=== PATIENT | male | born 2000 ===

== ENCOUNTER 2020-12-27 10:31 | Outpatient (REF) | payer OTHER, SELFPAY ==
[2020-12-27 14:09] LABS: MANUAL DIFF FLAG NO
[2020-12-27 14:14] LABS: Basophils Absolute Auto 0.1 X10*3/uL (0.0-0.2); Basophils Percent Auto 0.5 % (0-2); Eosinophils Absolute Auto 0.3 X10*3/uL (0.0-0.4); Eosinophils Percent Auto 2.5 % (0-4); Hematocrit 50.4 % (42-52); Hemoglobin 16.7 g/dl (14.0-18.0); Imm Gran Abs Auto 0.03 X10*3/uL (0.00-0.03); Imm Gran Pct Auto 0.3 % (0.0-0.4); Lymphocytes Absolute Auto 4.1 X10*3/uL (1.2-4.9); Lymphocytes Percent Auto 41.7 % (20-40); Mean Corpuscular HGB Conc 33.1 g/dl (31.0-36.0); Mean Corpuscular Hemoglobin 30.7 pg (27.0-33.0); Mean Corpuscular Volume 92.6 fL (80-98); Mean Platelet Volume 10.7 fL (9.4-12.4); Monocytes Absolute Auto 0.8 X10*3/uL (0.1-1.2); Monocytes Percent Auto 8.4 % (2-11); Neutrophils Absolute Auto 4.6 X10*3/uL (2.0-8.3); Neutrophils Percent Auto 46.6 % (45-73); Platelet Count 238 X10*3/uL (160-400); Red Blood Count 5.44 X10*6/uL (4.60-5.80); Red Cell Distribution Width 12.3 % (11.0-16.0); White Blood Count 9.8 X10*3/uL (4.8-10.8)
[2020-12-27 14:33] LABS: Alanine Aminotransferase 21 U/L (0-40); Anion Gap 15 (12-20); Aspartate Amino Transferase 24 U/L (5-37); Blood Urea Nitrogen 25 mg/dL (9-16); Calcium 10.6 mg/dL (8.4-10.2); Carbon Dioxide 29 mmol/L (22-29); Chloride 101 mmol/L (96-108); Cholesterol 172 mg/dL; Estimated Glomerular Filt Rate > 60; Glucose Fasting 80 mg/dL (60-99); HDL Cholesterol 43 mg/dL; LDL Cholesterol Calculated 119 mg/dl; Potassium 4.5 mmol/L (3.3-5.1); Sodium 140 mmol/L (135-145); Triglycerides 54 mg/dL
[2020-12-27 14:54] LABS: TSH reflex Free T4 2.33 uIU/mL (0.32-4.0)
== END 2020-12-27 10:32 | disposition home or self-care (01) ==
LOC: HO.HMGCLDS 10:31
PROVIDERS: PCP Internal Medicine; Visit Provider Internal Medicine
DX: Z00.01 Encounter for general adult medical examination with abnormal findings (principal); F90.9 Attention-deficit hyperactivity disorder, unspecified type; F32.9 Major depressive disorder, single episode, unspecified; I10 Essential (primary) hypertension
CPT/HCPCS: 36415; 80048; 80061; 82306; 84443; 84450; 84460; 85025

== ENCOUNTER 2022-01-27 08:45 | Outpatient (REF) | payer OTHER, SELFPAY ==
[2022-01-27 12:24] LABS: Alanine Aminotransferase 28 U/L (0-40); Aspartate Amino Transferase 20 U/L (5-37); Cholesterol 192 mg/dL; Glucose Fasting 86 mg/dL (60-99); HDL Cholesterol 45 mg/dL; LDL Cholesterol Calculated 133 mg/dl; Triglycerides 71 mg/dL
== END 2022-01-27 08:46 | disposition home or self-care (01) ==
LOC: HO.WFDLDS 08:45
PROVIDERS: Visit Provider Internal Medicine
DX: Z00.00 Encounter for general adult medical examination without abnormal findings (principal); F32.9 Major depressive disorder, single episode, unspecified; F43.10 Post-traumatic stress disorder, unspecified; F90.9 Attention-deficit hyperactivity disorder, unspecified type; L70.0 Acne vulgaris
CPT/HCPCS: 36415; 80061; 82947; 84450; 84460

== ENCOUNTER 2023-01-26 12:14 | Outpatient (AMB) | payer OTHER, SELFPAY ==
[2023-01-26 12:24] VITALS: BP 118/70; PULSE 101; O2SAT 99; BMI 25.1
--- NOTE | 2023-01-26 12:24 | MHC.PC.OV ---
Vital Signs 01/26/23 12:24 Height 5 ft 5 in Weight 151 lb BMI 25.1 BP 118/70 Blood Pressure Location Rt brachial Position Sitting Pulse 101 H Pulse Source Pulse Oximeter Pulse Oximetry (%) 99 Oxygen Delivery Method Room Air Intake Visit Reasons: PE Intake Note: pt is here for physical exam Accompanied by: Self / Same As Patient Allergies No Known Allergies Allergy (Verified 01/26/23 13:28) Medication List - Last Reconciled 01/26/23 by Ml Tate MD benzoyl peroxide 10% (Acne Medication) 1 appl topical QAM clindamycin phosphate 1% 1 appl topical DAILY escitalopram oxalate 20 mg PO DAILY methylphenidate HCl ER (Concerta) 54 mg PO DAILY tretinoin 0.025% appl topical BEDTIME Tobacco use date assessed: 01/26/23 Dental Screening Dental Screen Date: 01/26/23 Did you have a dental visit in the last 12 months?: Yes Did you have a dental problem in the last 6 months where you did not have access to dental care?: No Was dental information given to patient?: Patient has dentist HPI PE HPI Details 22-year-old male here today for his physical exam. He is currently being followed for his ADHD and PTSD by Ole joseph, stable and controlled on Concerta and escitalopram. He is also currently being seen by Dr. Alvarez for his acne, controlled with clindamycin phosphate gel , benzoyl peroxide and tretinoin. He has been feeling well, with no complaints at present time. [facility] Medical History Adult general medical exam Acne vulgaris Allergic rhinitis PTSD (post-traumatic stress disorder) Depression ADHD Surgical History S/P tonsillectomy and adenoidectomy Family History Sister Mental health disorder Maternal Aunt Mental health disorder Social History Housing: Apartment Patient Tobacco Use Status: Never used Tobacco e-Cigarette/Vaping Use: Never Used Second Hand Smoke Exposure: No service: No Current occupational status: employed Cognitive needs: No Hearing needs: No Vision needs: No Questionnaire PHQ-9 Over the last 2 weeks, how often have you been bothered by any of the following problems? 1. Little interest or pleasure in doing things: several days 2. Feeling down, depressed, or hopeless: not at all 3. Trouble falling or staying asleep, or sleeping too much: several days 4. Feeling tired or having little energy: not at all 5. Poor appetite or overeating: not at all 6. Feeling bad about yourself - or that you are a failure or have let yourself or your family down: several days 7. Trouble concentrating on things, such as reading the newspaper or watching television: several days 8. Moving or speaking so slowly that other people could have noticed. Or the opposite - being so fidgety or restless that you have been moving around a lot more than usual: not at all 9. Thoughts that you would be better off or of hurting yourself in some way: not at all Total score: 4 Depression Screening Interpretation: Negative (Currently followed by Idalia Norman for his PTSD and ADD) 69525 - PHQ-9 Billing: Yes Source: Developed by Drs. Ron Elam, Fatuma Walton, Al Banegas and colleagues, with an educational palmer from [employer]. Thrive Questionnaire Date Thrive assessed: 01/26/23 I am a: Patient What is your living situation today?: I have a steady place to live Within the past 12 months, did the food you bought not last and you didn't have the money to get more?: Never true Within the past 12 months, did you worry whether your food would run out before you got money to buy more?: Never true Do you have trouble paying for medicines?: No Do you have trouble getting transportation to medical appointments?: No Do you have trouble paying your heating and electricity bill?: No Do you have trouble taking care of your child, family member or friend?: No Do you have trouble with day-to-day activities such as bathing, preparing meals, shopping, managing finances, etc.?: No Are you currently unemployed and looking for a job?: No Are you interested in more education?: No Please select the resources that you would like help with: None Currently or been in a relationship where the following occur: no concerns reported DEEPALI-7 AMB Questionnaire DEEPALI-7 Date DEEPALI - 7 assessed: 01/26/23 Feeling nervous, anxious, or on edge: 1 = Several days Not being able to stop or control worryin = Not at all Worrying too much about different things: 1 = Several days Trouble relaxin = Not at all Being so restless that it is hard to sit still: 0 = Not at all Becoming easily annoyed or irritable: 0 = Not at all Feeling afraid as if something awful might happen: 0 = Not at all Total DEEPALI-7 score (0-4 normal; 5-9 mild; 10-14 moderate; 15-21 severe): 2 Source: Developed by Drs. Ron Elam, Fatuma Walton, Al Banegas and colleagues, with an educational palmer from [employer]. DEEPALI-7 Assessment Billing DEEPALI-7 Assessment Tool: DEEPALI-7 Assessment [id number] Review of Systems Const Denies body aches, Denies fatigue, Denies fever(s), Denies headache(s) and Denies weakness Eyes Denies change in vision, Denies eye discharge and Denies itchy eyes ENT Denies dizziness, Denies headache(s), Denies nasal congestion, Denies nasal discharge and Denies sore throat Card Denies chest pain, Denies lightheadedness and Denies dyspnea Resp Denies chest congestion, Denies cough, Denies dyspnea and Denies wheezing GI Denies abdominal pain, Denies change in bowel habits and Denies heartburn Denies dysuria, Denies urinary frequency and Denies urinary urgency Musc Reports no additional complaints Skin/Breast Denies lesions and Denies rash Neuro Denies dizziness, Denies headache(s) and Denies weakness Psych Reports as per HPI Endo Denies fatigue, Denies polydipsia and Denies polyuria Parminder/Lymph Denies easy bruising Aller/Immun Denies itchy eyes, Denies seasonal rhinorrhea and Denies wheezing Physical exam (Primary Care) Vital Signs: Last Vital Signs Pulse 101 H 01/26/23 12:24 BP 118/70 01/26/23 12:24 Pulse Ox 99 01/26/23 12:24 Oxygen Delivery Method Room Air 01/26/23 12:24 BMI result Body Mass Index 25.1 Tobacco/Smoking Status: Tobacco use Status Tobacco use date assessed 01/26/23 01/26/23 12:27 Patient Tobacco Use Status Never used Tobacco 01/26/23 12:27 e-Cigarette/Vaping Use Never Used 01/26/23 12:27 PHQ-9: PHQ-9 Score PHQ-9: Total score 4 01/26/23 13:35 Depression Screening Interpretation: Negative (Currently followed by Idalia Norman for his PTSD and ADD) Thrive Assessment: Date of Thrive Assessment Date Thrive assessed 01/26/23 01/26/23 12:27 Currently or been in a relationship where the following occur: no concerns reported Const General: cooperative and no acute distress Orientation/consciousness: patient oriented x3 Limitations: no limitations HENMT Ears: hearing grossly normal bilaterally, external ears normal, TM's normal bilaterally and EAC's normal General nose exam: Normal external nose present and No nasal discharge present Mouth: Normal oral and palatal mucosa present, oropharynx normal and moist mucous membranes Throat: Yes posterior oropharynx normal Eyes General: appearance normal, both eyes and all related structures Conjunctivae: conjunctivae normal Pupils: Equal, round and reactive pupils present EOM: EOMs intact bilaterally Neck Neck: Yes full ROM, Yes no lymphadenopathy and Yes supple Thyroid: Thyroid normal Chest Chest palpation & inspection: normal inspection of the chest Resp Effort & Inspection: normal respiratory effort and able to speak in complete sentences Auscultation: clear to auscultation bilaterally Cardio Rate: regular rate Rhythm: regular rhythm Heart sounds: S1 normal heart sound present and S2 normal heart sound present GI Inspection: Yes normal to inspection Palpation (GI): Soft to palpation, nontender and no masses Auscultation: normal bowel sounds Male General Exam: Yes normal external exam Penis: normal penis Back/Spine/Pelvis Cervical Spine: cervical ROM normal Thoracic/Lumbar Spine: thoracic and lumbar spine normal to inspection Skin General skin exam: no rashes or lesions noted Neuro General: patient oriented x3, gait normal, moves all extremities, Normal light touch and pain sensation and no focal motor deficits Cranial nerves: Yes Equal, round and reactive pupils present Cognition (Neuro): normal cognition Gait exam (Neuro): Normal gait present Motor exam (neuro): 5/5 motor strength present throughout Extrem General: Yes full ROM, Yes no joint enlargement, Yes no pedal edema, Yes no calf tenderness and Yes normal gait Psych Appearance: grossly normal Mental Status: mental status grossly normal Speech and movement: Normal speech and movement present Affect: Blunted affect present Attitude: cooperative Assessment and Plan Assessment & Plan (1) Adult general medical exam: Code(s): Z00.00 - Encounter for general adult medical examination without abnormal findings Plan: Will check appropriate labs. Recommended dental visit every 6 months and regular eye exams, at least every 2 years. Take adequate calcium in diet and vitamin-D 3 at 2000 IU per cap once a day, in addition to weight-bearing exercises to help maintain good muscle tone and weight control. Instructed to do self-testicular exam to check for any mass. To get his COVID booster and flu shot (2) Acne vulgaris: Code(s): L70.0 - Acne vulgaris Plan: With benzyl peroxide, tretinoin and clindamycin gel, followed by Dr. Irwin (3) PTSD (post-traumatic stress disorder): Code(s): F43.10 - Post-traumatic stress disorder, unspecified Plan: Doing well on escitalopram (4) Depression: Code(s): F32.9 - Major depressive disorder, single episode, unspecified Qualifiers: Active/Remission status: currently active Depression Type: major depressive disorder Major depression episode severity: mild Major depression recurrence: recurrent Qualified Code(s): F33.0 - Major depressive disorder, recurrent, mild Plan: Followed by Ole Norman, controlled on escitalopram (5) ADHD: Code(s): F90.9 - Attention-deficit hyperactivity disorder, unspecified type Qualifiers: Attention deficit-hyperactivity disorder type: predominantly inattentive Qualified Code(s): F90.0 - Attention-deficit hyperactivity disorder, predominantly inattentive type Plan: Controlled with Concerta Orders: Orders Alanine Aminotransferase 01/26/23 F32.9 - Major depressive disorder, single episode, unspecified, F43.10 - Post-traumatic stress disorder, unspecified, F90.9 - Attention-deficit hyperactivity disorder, unspecified type, L70.0 - Acne vulgaris, Z00.00 - Encounter for general adult medical examination without abnormal findings Aspartate Amino Transferase 01/26/23 F32.9 - Major depressive disorder, single episode, unspecified, F43.10 - Post-traumatic stress disorder, unspecified, F90.9 - Attention-deficit hyperactivity disorder, unspecified type, L70.0 - Acne vulgaris, Z00.00 - Encounter for general adult medical examination without abnormal findings Hemoglobin and Hematocrit 01/26/23 F32.9 - Major depressive disorder, single episode, unspecified, F43.10 - Post-traumatic stress disorder, unspecified, F90.9 - Attention-deficit hyperactivity disorder, unspecified type, L70.0 - Acne vulgaris, Z00.00 - Encounter for general adult medical examination without abnormal findings Glucose Fasting 01/26/23 F32.9 - Major depressive disorder, single episode, unspecified, F43.10 - Post-traumatic stress disorder, unspecified, F90.9 - Attention-deficit hyperactivity disorder, unspecified type, L70.0 - Acne vulgaris, Z00.00 - Encounter for general adult medical examination without abnormal findings Lipid Panel 01/26/23 F32.9 - Major depressive disorder, single episode, unspecified, F43.10 - Post-traumatic stress disorder, unspecified, F90.9 - Attention-deficit hyperactivity disorder, unspecified type, L70.0 - Acne vulgaris, Z00.00 - Encounter for general adult medical examination without abnormal findings Vitamin D 25-OH Total 01/26/23 F32.9 - Major depressive disorder, single episode, unspecified, F43.10 - Post-traumatic stress disorder, unspecified, F90.9 - Attention-deficit hyperactivity disorder, unspecified type, L70.0 - Acne vulgaris, Z00.00 - Encounter for general adult medical examination without abnormal findings Coding Level of Care Code Est Pt Prev Care 18-39y([id number]) Diagnoses Adult general medical exam Z00.00 Acne vulgaris L70.0 PTSD (post-traumatic stress disorder) F43.10 Mild episode of recurrent major depressive disorder F33.0 Active/Remission status: currently active Depression Type: major depressive disorder Major depression episode severity: mild Major depression recurrence: recurrent Attention deficit hyperactivity disorder (ADHD), predominantly inattentive type F90.0 Attention deficit-hyperactivity disorder type: predominantly inattentive Additional Codes DEEPALI-7 Assessment Billing - DEEPALI-7 Assessment Tool: DEEPALI-7 Assessment [id number] ([id number])
== END 2023-01-26 15:49 | disposition home or self-care (01) ==
PROVIDERS: Visit Provider Internal Medicine
DX: Z00.00 Encounter for general adult medical examination without abnormal findings (principal); F43.10 Post-traumatic stress disorder, unspecified; F33.0 Major depressive disorder, recurrent, mild; F90.0 Attention-deficit hyperactivity disorder, predominantly inattentive type; L70.0 Acne vulgaris
CPT/HCPCS: 99395

== ENCOUNTER 2023-02-01 08:04 | Outpatient (REF) | payer OTHER, SELFPAY ==
[2023-02-01 08:46] LABS: Hematocrit 49.6 % (42.0-52.0); Hemoglobin 16.7 g/dl (14.0-18.0)
[2023-02-01 09:48] LABS: Alanine Aminotransferase 19 U/L (0-40); Aspartate Amino Transferase 17 U/L (5-37); Cholesterol 182 mg/dL (<200); Glucose Fasting 89 mg/dL (60-99); HDL Cholesterol 44 mg/dL (>40); LDL Cholesterol Calculated 126 mg/dL (<100); Triglycerides 62 mg/dL (<150)
[2023-02-01 10:16] LABS: Vitamin D 25-OH Total 7.6 ng/mL (>30)
== END 2023-02-01 08:05 | disposition home or self-care (01) ==
LOC: HO.LAB 08:04
PROVIDERS: PCP Internal Medicine; Visit Provider Internal Medicine
DX: Z00.00 Encounter for general adult medical examination without abnormal findings (principal); L70.0 Acne vulgaris; F43.10 Post-traumatic stress disorder, unspecified; F32.9 Major depressive disorder, single episode, unspecified; F90.9 Attention-deficit hyperactivity disorder, unspecified type
CPT/HCPCS: 36415; 80061; 82306; 82947; 84450; 84460; 85014; 85018

== ENCOUNTER 2023-08-24 11:55 | Outpatient (REF) | payer OTHER, SELFPAY ==
[2023-08-26 21:23] LABS: TS Negative Control Passed; TS Panel A 0; TS Panel B 0; TS Positive Control Passed; TSpotTB Negative (Negative)
== END 2023-08-24 11:56 | disposition home or self-care (01) ==
LOC: HO.LAB 11:55
PROVIDERS: PCP Internal Medicine; Visit Provider Internal Medicine
DX: Z11.1 Encounter for screening for respiratory tuberculosis (principal)
CPT/HCPCS: 36415; 86481

== ENCOUNTER 2024-01-31 13:37 | Outpatient (REF) | payer OTHER, SELFPAY ==
[2024-01-31 16:40] LABS: Alanine Aminotransferase 20 U/L (0-40); Aspartate Amino Transferase 16 U/L (5-37); Cholesterol 184 mg/dL (<200); Glucose Fasting 83 mg/dL (60-99); HDL Cholesterol 46 mg/dL (>40); LDL Cholesterol Calculated 126 mg/dL (<100); Triglycerides 62 mg/dL (<150)
== END 2024-01-31 13:38 | disposition home or self-care (01) ==
LOC: HO.HMGCLDS 13:37
PROVIDERS: PCP Internal Medicine; Visit Provider Internal Medicine
DX: Z00.00 Encounter for general adult medical examination without abnormal findings (principal); E55.9 Vitamin D deficiency, unspecified; F90.0 Attention-deficit hyperactivity disorder, predominantly inattentive type; F33.0 Major depressive disorder, recurrent, mild; Z13.220 Encounter for screening for lipoid disorders; Z13.1 Encounter for screening for diabetes mellitus
CPT/HCPCS: 36415; 80061; 82306; 82947; 84450; 84460

== ENCOUNTER 2024-03-28 11:08 | Outpatient (REF) | payer OTHER, SELFPAY ==
[2024-03-28 14:39] LABS: Folate 7.4 ng/mL (> or = 4.0); Vitamin B12 272 pg/mL (200-900)
[2024-04-03 13:32] LABS: VITAMIN D (1,25 OH) D3 33 pg/mL; Vit D (1,25-Dihydroxy) Total 33 pg/mL (18-72); Vitamin D (1,25 OH) D2 <8 pg/mL
== END 2024-03-28 11:09 | disposition home or self-care (01) ==
LOC: HO.HMGCLDS 11:08
PROVIDERS: PCP Internal Medicine; Visit Provider Nurse Practitioner Family
DX: Z00.00 Encounter for general adult medical examination without abnormal findings (principal); E55.9 Vitamin D deficiency, unspecified; F90.0 Attention-deficit hyperactivity disorder, predominantly inattentive type; F33.0 Major depressive disorder, recurrent, mild; F43.10 Post-traumatic stress disorder, unspecified
CPT/HCPCS: 36415; 82607; 82652; 82746; 96127; 99395

== ENCOUNTER 2024-03-28 11:08 | Outpatient (AMB) | payer OTHER, SELFPAY ==
[2024-03-28 11:10] VITALS: BP 136/80; PULSE 98; O2SAT 98; BMI 25.3
--- NOTE | 2024-03-28 11:10 | A.OFFPC_ITS ---
Vital Signs 03/28/24 11:10 Height 5 ft 5 in Weight 152 lb BMI 25.3 BP 136/80 Blood Pressure Location Rt brachial Position Sitting Pulse 98 Pulse Source Pulse Oximeter Pulse Oximetry (%) 98 Oxygen Delivery Method Room Air Intake Visit Reasons: PE Intake Note: pt is here for PE Change Booth Attendant Required: No Allergies No Known Allergies Allergy (Verified 03/28/24 11:10) Medication List - Last Reconciled 03/28/24 by Faviola Funes NP benzoyl peroxide 10% (Acne Medication) 1 appl topical QAM cholecalciferol (vitamin D3) 1,250 mcg PO QWEEK 3 months clindamycin phosphate 1% 1 appl topical DAILY dextroamphetamine-amphetamine 20 mg (Adderall) 20 mg PO DAILY tretinoin 0.025% appl topical BEDTIME venlafaxine ER 75 mg PO DAILY Tobacco use date assessed: 03/28/24 Dental Screening Dental Screen Date: 03/28/24 Did you have a dental visit in the last 12 months?: Yes Did you have a dental problem in the last 6 months where you did not have access to dental care?: No Was dental information given to patient?: Patient has dentist HPI HPI Comments History of Present Illness Details 23 y/o male patient who presents to the clinic for PE. A Patient of Dr. Tate. Pmhx significant for Acne Vulgaris, PTSD, ADHD and Depression. Patient is accompanied by Older sister who cares for him. Sister worried that Pt might be Autistic (Mild Form) and asking to be tested. Pt is under the care of Psych Dr. Ole Michael and receives Adderall 20 mg and Escitalopram. He is also under the care of Dr. Irwin for Acne. Pt is not sexually active currently, but likes Men. Denies any STIs. [facility] Medical History (Updated 03/28/24 @ 11:54 by Faviola Funes NP) Encounter for routine adult health examination without abnormal findings Vitamin D deficiency Adult general medical exam Acne vulgaris Allergic rhinitis PTSD (post-traumatic stress disorder) Depression ADHD Surgical History S/P tonsillectomy and adenoidectomy Family History Sister Mental health disorder Maternal Aunt Mental health disorder Social History Housing: Apartment Patient Tobacco Use Status: Never used Tobacco e-Cigarette/Vaping Use: Never Used Second Hand Smoke Exposure: No service: No Current occupational status: employed Cognitive needs: No Hearing needs: No Vision needs: No Questionnaire PHQ-9 Over the last 2 weeks, how often have you been bothered by any of the following problems? 1. Little interest or pleasure in doing things: more than half the days 2. Feeling down, depressed, or hopeless: not at all 3. Trouble falling or staying asleep, or sleeping too much: more than half the days 4. Feeling tired or having little energy: several days 5. Poor appetite or overeating: not at all 6. Feeling bad about yourself - or that you are a failure or have let yourself or your family down: several days 7. Trouble concentrating on things, such as reading the newspaper or watching television: nearly every day 8. Moving or speaking so slowly that other people could have noticed. Or the opposite - being so fidgety or restless that you have been moving around a lot more than usual: not at all 9. Thoughts that you would be better off or of hurting yourself in some way: not at all Total score: 9 Depression Screening Interpretation: Negative Depression Screening Done: Yes 35372 - PHQ-9 Billing: Yes Source: Developed by Drs. Ron Elam, Fatuma Walton, Al Banegas and colleagues, with an educational palmer from [employer]. Thrive Questionnaire Date Thrive assessed: 03/25/24 I am a: Patient What is your living situation today?: I have a steady place to live Within the past 12 months, did the food you bought not last and you didn't have the money to get more?: Often true Within the past 12 months, did you worry whether your food would run out before you got money to buy more?: Often true Do you have trouble paying for medicines?: No Do you have trouble getting transportation to medical appointments?: No Do you have trouble paying your heating and electricity bill?: No Do you have trouble taking care of your child, family member or friend?: No Do you have trouble with day-to-day activities such as bathing, preparing meals, shopping, managing finances, etc.?: No Are you currently unemployed and looking for a job?: Yes Are you interested in more education?: Yes Please select the resources that you would like help with: Job search/training and Education Currently or been in a relationship where the following occur: No concerns reported THRIVE Score: 2 AUDIT C Alcohol Use Questionnaire (AUDIT-C) 1. How often do you have a drink containing alcohol?: Never 3. How often do you have six or more drinks on one occasion?: Never Total Score: 0 Score Reviewed/Action Taken: Yes DEEPALI-7 AMB Questionnaire DEEPALI-7 Date DEEPALI - 7 assessed: 03/28/24 Feeling nervous, anxious, or on edge: 1 = Several days Not being able to stop or control worryin = Several days Worrying too much about different things: 1 = Several days Trouble relaxin = Not at all Being so restless that it is hard to sit still: 0 = Not at all Becoming easily annoyed or irritable: 0 = Not at all Feeling afraid as if something awful might happen: 1 = Several days Total DEEPALI-7 score (0-4 normal; 5-9 mild; 10-14 moderate; 15-21 severe): 4 Source: Developed by Drs. Ron Elam, Fatuma Walton, Al Banegas and colleagues, with an educational palmer from [employer]. DEEPALI-7 Assessment Billing DEEPALI-7 Assessment Tool: DEEPALI-7 Assessment 82847 Review of Systems Const All systems reviewed & are unremarkable except as noted in HPI and below Physical exam (Primary Care) Vital Signs: Last Vital Signs Pulse 98 03/28/24 11:10 BP 136/80 03/28/24 11:10 Pulse Ox 98 03/28/24 11:10 Oxygen Delivery Method Room Air 03/28/24 11:10 BMI result Body Mass Index 25.3 Tobacco/Smoking Status: Tobacco use Status Tobacco use date assessed 03/28/24 03/28/24 11:14 Patient Tobacco Use Status Never used Tobacco 03/28/24 11:10 e-Cigarette/Vaping Use Never Used 03/28/24 11:10 PHQ-9: PHQ-9 Score PHQ-9: Total score 9 11/08/24 11:14 Depression Screening Interpretation: Negative Thrive Assessment: Date of Thrive Assessment Date Thrive assessed 03/25/24 03/28/24 11:10 Currently or been in a relationship where the following occur: No concerns reported Const General: cooperative and comfortable Nutritional Appearance: well nourished Orientation/consciousness: patient oriented x3 HENMT Head: Yes normocephalic Ears: external ears normal and TM's normal bilaterally General nose exam: Normal external nose present Face and sinus: Yes sinuses nontender Mouth: moist mucous membranes Throat: Yes posterior oropharynx normal, Yes tonsils normal and Yes uvula midline Eyes Pupils: Equal, round and reactive pupils present EOM: EOMs intact bilaterally Direct Ophthalmoscopy: normal light reflex Neck Neck: Yes full ROM and Yes no lymphadenopathy Thyroid: Thyroid normal Resp Effort & Inspection: normal respiratory effort and able to speak in complete sentences Auscultation: clear to auscultation bilaterally, no crackles, no rales, no rhonchi and no wheezes Cardio Heart sounds: S1 normal heart sound present and S2 normal heart sound present GI Inspection: Yes normal to inspection Palpation (GI): Soft to palpation, not firm, nontender, no guarding, not rigid and No hepatosplenomegaly present Percussion: Yes normal to percussion Auscultation: normal bowel sounds General: Yes no CVA tenderness and Yes deferred Back/Spine/Pelvis Back: no CVA tenderness and No back tenderness Skin General skin exam: no rashes or lesions noted Neuro General: patient oriented x3, gait normal and moves all extremities Cranial nerves: Yes Equal, round and reactive pupils present Motor exam (neuro): 5/5 motor strength present throughout Extrem General: Yes full ROM and Yes capillary refill normal Psych Speech and movement: Normal speech and movement present Coding Level of Care Code Est Pt Prev Care 18-39y([id number]) Diagnoses Vitamin D deficiency E55.9 Encounter for routine adult health examination without abnormal findings Z00.00 Attention deficit hyperactivity disorder (ADHD), predominantly inattentive type F90.0 Attention deficit-hyperactivity disorder type: predominantly inattentive Mild episode of recurrent major depressive disorder F33.0 Depression Type: major depressive disorder Major depression recurrence: recurrent Active/Remission status: currently active Major depression episode severity: mild PTSD (post-traumatic stress disorder) F43.10 Additional Codes DEEPALI-7 Assessment Billing - DEEPALI-7 Assessment Tool: DEEPALI-7 Assessment [id number] ([id number]) PHQ-9 - 86828 - PHQ-9 Billing: Yes ([id number]) Time Spent (min) 30 Assessment & Plan Assessment & Plan (1) Vitamin D deficiency: Code(s): E55.9 - Vitamin D deficiency, unspecified Category: Medical Plan: Ordered Labs today. (2) Encounter for routine adult health examination without abnormal findings: Code(s): Z00.00 - Encounter for general adult medical examination without abnormal findings Category: Medical Plan: Normal Exam today. Advised Pt and Sister that Dr. Michael (Psych) will be the appropriate person to ask for Autism testing. (3) ADHD: Code(s): F90.9 - Attention-deficit hyperactivity disorder, unspecified type Category: Medical Qualifiers: Attention deficit-hyperactivity disorder type: predominantly inattentive Qualified Code(s): F90.0 - Attention-deficit hyperactivity disorder, predominantly inattentive type Plan: Managed by Psych. (4) Depression: Code(s): F32.9 - Major depressive disorder, single episode, unspecified Category: Medical Qualifiers: Depression Type: major depressive disorder Major depression recurrence: recurrent Active/Remission status: currently active Major depression episode severity: mild Qualified Code(s): F33.0 - Major depressive disorder, recurrent, mild Plan: Managed by Psych. (5) PTSD (post-traumatic stress disorder): Code(s): F43.10 - Post-traumatic stress disorder, unspecified Category: Medical Plan: Managed by Psych. Orders: Orders Vitamin B12 and Folate Today E55.9 - Vitamin D deficiency, unspecified Vitamin D 1,25 dihydroxy Today E55.9 - Vitamin D deficiency, unspecified
== END 2024-03-28 12:33 | disposition home or self-care (01) ==
PROVIDERS: PCP Internal Medicine; Visit Provider Nurse Practitioner Family
DX: E55.9 Vitamin D deficiency, unspecified (principal); Z00.00 Encounter for general adult medical examination without abnormal findings; F90.0 Attention-deficit hyperactivity disorder, predominantly inattentive type; F33.0 Major depressive disorder, recurrent, mild; F43.10 Post-traumatic stress disorder, unspecified